=== PATIENT | female | born 1950 | race Caucasian/White ===

== ENCOUNTER 2021-08-13 11:41 | Emergency (ER) | payer OTHER, SELFPAY ==
--- NOTE | 2021-08-13 11:49 | PC.NURSE ---
Pt in bathroom
--- NOTE | 2021-08-13 11:57 | PC.NURSE ---
Pt still in bathroom in lobby Pts told to rock picker red phone in lobby when she is out.
--- NOTE | 2021-08-13 19:01 | ED.ABDPAIN ---
HPI - Abdominal Pain General Stated Complaint: THROWING UP HARD TIME BREATHING FOOD POSING Discharge Plan Departure Patient Disposition: Left Without Being Seen Clinical Impression: Patient left without being seen
== END 2021-08-13 12:05 | disposition left against medical advice (07) ==
PROVIDERS: Emergency Provider Emergency Medicine
DX: R11.10 Vomiting, unspecified (principal)